=== PATIENT | female | born 2000 | race Hispanic/Latino ===

== ENCOUNTER → 2020-04-07 15:08 | Outpatient (CLI) | payer OTHER, MEDICAID, SELFPAY ==
[2020-04-07 16:55] LABS: Add Manual Diff / Slide Review NO; Basophils Absolute Auto 0 /uL (0-100); Basophils Percent Auto 0.3 % (0-2); Eosinophils Absolute Auto 100 /uL (0-450); Eosinophils Percent Auto 0.6 % (2-4); Hematocrit 38.7 % (36-46); Hemoglobin 13.1 g/dL (12.0-16.0); Lymphocytes Absolute Auto 2700 /uL (1100-4500); Lymphocytes Percent Auto 30.5 % (25-40); Mean Corpuscular Hemoglobin 29.9 PG (26-34); Mean Corpuscular Volume 87.9 fL (80-100); Monocytes Absolute Auto 300 /uL (0-900); Monocytes Percent Auto 3.8 % (3-14); Neutrophils Absolute Auto 5800 /uL (1500-7000); Neutrophils Percent Auto 64.8 % (50-75); Platelet Count 276 X10^3/uL (150-400); Red Cell Distribution Width 12.9 % (11.6-14.8)
[2020-04-07 17:14] LABS: Appearance Urine UA CLEAR; Bilirubin Urine UA NEGATIVE (NEGATIVE); Color Urine UA YELLOW; Glucose Urine UA NEGATIVE (Negative); Ketones Urine UA NEGATIVE (NEGATIVE); Leukocyte Esterase Urine UA NEGATIVE (NEGATIVE); Nitrite Urine UA POSITIVE (Negative); Occult Blood Urine UA NEGATIVE (Negative); Protein Urine UA NEGATIVE (Negative); Specific Gravity Urine UA <=1.005 (1.000-1.035); Urobilinogen Urine UA 0.2 E.U./dL (0.2)
[2020-04-07 17:21] LABS: RBC Urine None Seen (0-5/HPF); WBC Urine None Seen (0-5/HPF)
[2020-04-07 17:23] LABS: Amorphous Sediment Urine 1+; Bacteria Urine Few (2-10)
[2020-04-08 05:10] LABS: RPR Screen Non Reactive (Non Reactive)
[2020-04-08 07:09] LABS: Varicella IgG Antibody <135 index (Immune >165)
[2020-04-08 16:13] LABS: Hepatitis B Surface Antigen NEGATIVE s/c (NEGATIVE); Rubella Antibody IgG 12.2 IU/mL (>15)
[2020-04-08 16:30] LABS: HIV 1 & 2 Ab/Ag 4th Gen Combo NEGATIVE (NEGATIVE); Hep C Virus Ab w/Reflex Quant NEGATIVE s/c (NEGATIVE)
== END ==
PROVIDERS: Referring Provider Specialist; Visit Provider Specialist
DX: Z34.01 Encounter for supervision of normal first pregnancy, first trimester (principal)
CPT/HCPCS: 36415; 80055; 81003; 81015; 86787; 86803; 86850; 86900; 86901; 87086; 87389

== ENCOUNTER → 2020-07-28 11:52 | Outpatient (CLI) | payer OTHER, MEDICAID, SELFPAY | PROVIDERS: Referring Provider Specialist; Visit Provider Specialist | DX: Z34.02 Encounter for supervision of normal first pregnancy, second trimester (principal); Z3A.22 22 weeks gestation of pregnancy | CPT/HCPCS: 87086 ==

== ENCOUNTER → 2020-07-28 13:07 | Outpatient (CLI) | payer OTHER, MEDICAID, SELFPAY ==
--- NOTE | 2020-07-28 | DI.US.S_ITS ---
PROCEDURE: US OB >= 14 WEEKS FETUS INDICATIONS: ANATOMY SCAN OUTSIDE/PRIOR DATING DATA: First dating scan (date and location): 07/28/2020 . Estimated date of delivery (STALIN) from first dating scan: 11/29/2020 . TECHNIQUE: Real-time scanning was performed of the fetus, with image documentation and biometric measurements. Endovaginal scanning: No COMPARISON: None. FINDINGS: General: A single living intrauterine gestation is present. Presentation: Variable. Placenta: Placental position is anterior , without previa. Amniotic fluid index: 15.4 cm, normal range is 5-24 cm. heart rate: 155 beats per minute. Maternal cervical canal: 5.0 cm long. Normal lower limit is 2.5 cm. biometrics: Biparietal diameter: 22 weeks Head circumference: 22 weeks 1 day Abdominal circumference: 22 weeks 3 days Femur length: 22 weeks 3 days Estimated gestational age from initial scan: not applicable. Composite gestational age from present scan: 22 weeks 2 days Estimated weight and percentile: 499 g Measurement variability for biometric dating: +/- 7 days from 14 weeks to 15 weeks 6 days gestation, +/- 10 days from 16 weeks to 21 weeks 6 days gestation, +/- 2 weeks from 22 weeks to 27 weeks 6 days gestation, +/- 3 weeks for 28 weeks gestation or later. weight reference: 4500 g or EFW >90/95% is considered macrosomia or large for gestational age. EFW <10% is small for gestational age. EFW 5% or less is considered intra-uterine growth restriction. Anatomic survey: Neuro: Ventricles are non-dilated at less than 10 mm. Cisterna magna is normal at 3-11 mm. Cerebellum is normal in size and morphology. Nuchal skin fold: Normal at less than 6 mm between 14-21 weeks gestational age. Face: Nose and lips, facial profile are normal. Spine: No evidence for spina bifida. Heart: 4-chambered heart is present, with normal ventricular outflow tracts. Diaphragm: Diaphragm is intact. Stomach: Left-sided stomach is present. Kidneys: No hydronephrosis. Normal is less than 5 mm in 2nd trimester, less than 7 mm in 3rd trimester. Cord: 3-vessel cord has orthotopic insertion. Bladder: Normal in size. Extremities: All 4 extremities identified. IMPRESSION: 1. Single living IUP present with composite gestational age of 22 weeks 2 days corresponding to ultrasound STALIN of 11/29/2020. 2. Normal anatomic survey. Dictated by: Fredrick JACOBSEN Interpreted: Jana Benson MD on 07/28/2020 at 16:58 Approved by: Jana Benson M.D. on 07/28/2020 at 17:58
== END ==
PROVIDERS: PCP Nurse Practitioner Family; Referring Provider Specialist; Visit Provider Specialist
DX: Z34.02 Encounter for supervision of normal first pregnancy, second trimester (principal); Z3A.22 22 weeks gestation of pregnancy
CPT/HCPCS: 76811; 87077; 87086

== ENCOUNTER → 2020-11-02 21:38 | Outpatient (CLI) | payer OTHER, MEDICAID, SELFPAY ==
[2020-11-04 09:43] LABS: Strep Grp B PCR NEG for Grp B Strep
== END ==
PROVIDERS: PCP Nurse Practitioner Family; Visit Provider Specialist
DX: Z34.03 Encounter for supervision of normal first pregnancy, third trimester (principal); Z3A.36 36 weeks gestation of pregnancy
CPT/HCPCS: 87653

== ENCOUNTER 2020-11-25 04:39 | Observation (INO) | payer OTHER, MEDICAID, SELFPAY ==
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
== END 2020-11-25 08:10 | disposition home or self-care (01) ==
PROVIDERS: Admitting Provider Specialist; PCP Nurse Practitioner Family; Referring Provider Specialist; Visit Provider Specialist
DX: O47.9 False labor, unspecified (principal); O48.0 Post-term pregnancy; Z3A.40 40 weeks gestation of pregnancy
CPT/HCPCS: 59025; G0378; G0379

== ENCOUNTER 2020-11-26 09:28 | Inpatient (IN) | payer OTHER, MEDICAID, SELFPAY ==
[2020-11-26] VITALS (7 sets, daily range): BP systolic 96–123; BP diastolic 42–60; PULSE 86–95; RESP 16–23; TEMP 37–37.2; O2SAT 99–100
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
[2020-11-26 11:18] LABS: Add Manual Diff / Slide Review NO; Basophils Absolute Auto 100 /uL (0-100); Basophils Percent Auto 0.6 % (0-2); Eosinophils Absolute Auto 0 /uL (0-450); Eosinophils Percent Auto 0.4 % (2-4); Hematocrit 36.3 % (36-46); Hemoglobin 12.4 g/dL (12.0-16.0); Lymphocytes Absolute Auto 1600 /uL (1100-4500); Lymphocytes Percent Auto 15.6 % (25-40); Mean Corpuscular HGB Conc 34.2 % (30-36); Mean Corpuscular Hemoglobin 29.8 PG (26-34); Mean Corpuscular Volume 87.3 fL (80-100); Monocytes Absolute Auto 400 /uL (0-900); Monocytes Percent Auto 4.2 % (3-14); Neutrophils Absolute Auto 8200 /uL (1500-7000); Neutrophils Percent Auto 79.2 % (50-75); Platelet Count 327 X10^3/uL (150-400); Red Blood Cell Count 4.15 X10^6/uL (4.0-5.2); Red Cell Distribution Width 13.7 % (11.6-14.8); White Blood Cell Count 10.3 X10^3/uL (4.5-11.0)
[2020-11-26 11:39] LABS: COVID19 -Nasal RAPID Negative (Negative)
--- NOTE | 2020-11-26 13:38 | PM.OBPNLAB ---
Date/Time Date Patient Seen: 11/26/20 Time Patient Seen: 13:15 Pain Control Pain control: tolerating well Comments: Contractions are stronger but she is coping well. Pelvic Exam Dilation (cm): 5 Effacement (%): 100 station: -2 Amniotic membrane status: Ruptured (AROM small amount of clear fluid) Contractions Contraction frequency (min): 5 Contraction pattern: Regular Contraction intensity: Strong/Firm Status status: Category l Heart Rate Baseline: 135 Monitor Accelerations: Present Monitor Decelerations: Absent Monitor Variability: Moderate Assessment and Plan Assessment: active labor Plan: continuous present management Comments: Doing well after AROM with clear fluid. Continue expectant management.
[2020-11-26] MEDS: LACTATED RINGERS 1,000 ML 100 ML IV ×4 (15:02→21:29)
[2020-11-26] MEDS: OXYTOCIN PREMIX 30 UNIT/500 ML PLAST..BAG IV (15:02)
--- NOTE | 2020-11-26 16:01 | PM.OBPNLAB ---
Date/Time Date Patient Seen: 11/26/20 Time Patient Seen: 15:50 Pain Control Pain control: tolerating well Pelvic Exam Dilation (cm): 6 Effacement (%): 100 station: -2 Amniotic membrane status: Ruptured (AROM small amount of clear fluid) Contractions Pitocin rate (mU/min): 6 Contraction frequency (min): 5 Contraction pattern: Regular Contraction intensity: Strong/Firm Status status: Category l Heart Rate Baseline: 130 Monitor Accelerations: Present Monitor Decelerations: Absent Monitor Variability: Moderate Assessment and Plan Assessment: active labor Plan: begin patient augmentation Comments: Patient has changed from 5 cm to 6 cm over the last 2.5 hours however contractions are quite spaced out every 5-6 minutes or more. head has not descended past -2 station. Encouraged patient to walk, use the birthing ball and peanut ball and try hands and knees. Will reassess after she has been in a regular contraction pattern for 2 hours. heart tones have been category 1 and 2 due to periods of minimal variability which returned to moderate.
--- NOTE | 2020-11-26 19:10 | PM.OBPNLAB ---
Date/Time Date Patient Seen: 11/26/20 Time Patient Seen: 18:20 Pain Control Comments: Patient is much more uncomfortable and request relief. Interested in nitrous oxide. Pelvic Exam Dilation (cm): 6 Effacement (%): 100 station: -2 Amniotic membrane status: Ruptured (AROM small amount of clear fluid) Contractions Pitocin rate (mU/min): 5 Contraction frequency (min): 5 Contraction pattern: Regular Contraction intensity: Strong/Firm Status status: Category ll Heart Rate Baseline: 140 Monitor Accelerations: Present Monitor Decelerations: Variable Assessment and Plan Plan: Comments: Patient has been at 6 cm for several hours now despite pitocin and regular contractions without descent of the head. Suspect either occiput posterior or asynclitic. Patient is very painful and tired. Discussed for arrest of labor and failure to descend. Discussed risk of bleeding, infection, injury to surrounding organs (bowel, bladder, ureters). She would accept a blood transfusion if necessary. Both she and her partner were given the opportunity to ask questions and expressed their understanding. Will proceed with primary . Ancef 2 g prior to surgery.
--- NOTE | 2020-11-26 19:20 | PM.PREOP ---
Pre-operative Note COVID-19 COVID-19 status: Negative Result date/Date tested (Pos, Neg/Pending): 11/26/20 Interval Note History & Physical reviewed/Exam performed by Physician: Yes Changes to H&P: No
[2020-11-26] MEDS: CEFAZOLIN 2 GM/100 ML FROZ.PIGGY IV (20:10)
--- NOTE | 2020-11-26 21:17 | SUR.OPER ---
Supine on Padded OR bed, head on pillow, safety belt at thigh, arms secured on padded arm boards at <90 degrees abduction. Bump under right buttock. Legs uncrossed with pillow under knees, gel pad to heels, tape over blanket to lower legs.
--- NOTE | 2020-11-26 21:17 | SUR.OPER ---
Viable baby girl delivered at 2108. placenta delivered. Cord blood tubes X2 and placenta given to L&D RN.
--- NOTE | 2020-11-26 21:48 | P.OP_ITS ---
Operative Date/Time/Diagnoses Date of procedure: 11/26/20 Time of procedure: 21:48 Pre-op diagnosis: Stage I arrest of labor Occiput posterior presentation Post-op diagnosis: same Procedure & Clinicians Procedure: Primary low-transverse section Spinal anesthesia Same procedure as scheduled: Yes Indications: Occiput posterior presentation Stage I arrest of labor Surgeon: Tish Espinoza Yes if Unassisted: No Life Insurance Actuary: Tali Ceron Reason for Life Insurance Actuary: Retraction and assist with delivery of the baby Anesthesia Type: Spinal (With Duramorph) Operative Notes Findings: Live female infant in the direct occiput posterior presentation Normal tubes and ovaries Normal uterus Closure Type: primary Specimen(s): cord blood and placenta Applied: Catheter (To continuous drainage) Estimated Blood Loss (mL): 500 Blood products transfused: none Procedure in detail: After informed consent was obtained, the patient was taken to the operating room where she was placed in the seated position. Spinal anesthesia with Duramorph was administered. She was placed in the dorsal supine position with a leftward tilt, and prepped and draped in the usual sterile fashion. A Pfannenstiel skin incision was made 2 finger breaths above the pubic symphysis. The assistant professor of archaeology provided hemostasis with the Bovie and retraction. This incision was carried down to the fascia. The fascia was nicked in the midline and the incision extended bilaterally with the Prater scissors with retraction by the assistant professor of archaeology. The superior aspect of the fascia was grasped with the Burton clamps, elevated, and the underlying rectus muscles dissected off sharply and bluntly by the assistant professor of archaeology. This was repeated on the inferior aspect of this incision. The rectus muscles were in the midline. The peritoneum was grasped between 2 hemostats and entered sharply with the Metzenbaum scissors. Retraction was provided by the assistant professor of archaeology. Upon entering the peritoneal cavity there was small amount of clear fluid. The bladder blade was inserted. With retraction by the assistant professor of archaeology the bladder flap was created by entering sharply with the Metzenbaum scissors and the incision extended bilaterally with the Metzenbaum scissors and the bladder flap created digitally. The bladder blade was reinserted. The lower uterine segment was incised in a transverse fashion with the scalpel. Retraction was provided by the assistant professor of archaeology. Upon entering the amniotic sac there was a small amount of clear amniotic fluid. The baby was found to be in the direct occiput posterior presentation. The infant's head was delivered without difficulty with fundal pressure from the assistant professor of archaeology. The nose and mouth were suction with bulb suction. The remainder of the body delivered without difficulty. The cord was double clamped and cut. The was handed off to waiting RN and RT. Cord bloods were obtained by the assistant professor of archaeology. The placenta was removed manually after Pitocin was given in the IV fluids. The uterus was cleared of all clots and debris. The uterine incision was closed with # Chromic in a running interlocking fashion. A 2nd layer the same suture was used for an imbricating layer. Hemostasis was achieved. The tubes and ovaries were examined and were found to be normal. The gutters were cleared of all clots and debris. The bladder flap was reapproximated using 2 0 Vicryl in a running fashion with retraction by the assistant professor of archaeology. The parietal peritoneum was closed using 2 0 Vicryl in a running fashion. Retraction was provided by the assistant professor of archaeology. The fascia was reapproximated with 0 Vicryl in a running fashion. The assistant professor of archaeology did the contralateral side of the fascia. The subcutaneous layer was copiously irrigated with warm normal saline. Hemostasis was achieved. Four simple interrupted sutures with 3 0 Vicryl were placed to reapproximate the subcutaneous layer. The skin was closed with 4 0 Monocryl in a subcuticular fashion. Steri-Strips and an Aquacel dressing were placed. The uterus was expressed of a small amount of old blood. Sponge, lap, and instrument counts were correct x2. The patient tolerated the procedure well, and was taken to PACU in stable condition. Complications: none [place] Baby 1: Gender: Female Presentation: vertex Position: Occiput Posterior Placental Delivery Description: Manual Removal and Normal Configuration Cord Vessel Description: 3 Vessels score (1 min): 9 score (5 min): 9 weight: 6 lb 12 oz Post-operative Condition: stable Disposition: PACU Aftercare: routine postop
[2020-11-26] MEDS: miSOPROStoL 200 MCG TABLET 800 MCG PR (22:25)
--- NOTE | 2020-11-26 22:31 | SUR.PHASEI ---
Second check of fundus revealed large amount of bleeding and small clots, called spoke with ALL Oliveira informed of increased bleeding, Roxanne came to see pt in PACU fundus checked by her and large amounts of clots out, fundus remained firm at 1 below umbilicus. Roxanne and Abner transported pt to and left in stable condition.
--- NOTE | 2020-11-26 22:37 | SUR.PHASEI ---
addendum, Roxanne medicated pt with cytotec while in PACU.
[2020-11-27] MEDS: LACTATED RINGERS 1,000 ML 100 ML IV (00:20)
[2020-11-27] MEDS: ONDANSETRON 4 MG/2 ML INJ IV (01:10)
[2020-11-27] MEDS: KETOROLAC 30 MG/ML VIAL IV ×3 (03:34→15:01)
[2020-11-27 06:31] LABS: Hematocrit 29.6 % (36-46); Hemoglobin 10.1 g/dL (12.0-16.0)
[2020-11-27] MEDS: DOCUSATE 250 MG CAPSULE PO (09:05)
[2020-11-27] MEDS: PRENATAL VIT,CALC/IRON/FOLIC 1 TABLET 1 TAB PO (09:06)
--- NOTE | 2020-11-27 09:19 | P.PNOB_ITS ---
Subjective - OB Subjective Patient comments: no complaints [place] baby status: doing well [place] feeding status: exclusively breast feeding Date Patient Seen: 11/27/20 Time Patient Seen: 09:19 Interval history: Patient is postoperative day 1. Primary section for for stage arrest. She has no complaints. Exam Vital Signs (past 8 hours): Blood pressure 87/52, pulse 64, temperature 97.9? Oxygen Delivery Method Room Air Narrative Exam Narrative: Abdomen is soft, nontender. Uterus is firm, at U, nontender. Dressing is clean, dry, intact. Mild lochia. Extremities without edema and nontender. Objective Labs Result Diagrams: 11/27/20 06:15 Labs: Laboratory Results - last 24 hr 11/26/20 11/26/20 11/26/20 11:00 11:00 11:00 WBC 10.3 RBC 4.15 Hgb 12.4 Hct 36.3 MCV 87.3 MCH 29.8 MCHC 34.2 RDW 13.7 Plt Count 327 Neut % (Auto) 79.2 H Lymph % (Auto) 15.[address] [place] % (Auto) 4.2 Eos % (Auto) 0.4 L Baso % (Auto) 0.6 Neut # (Auto) 8200 H Lymph # (Auto) 1600 [facility] # (Auto) 400 Eos # (Auto) 0 Baso # (Auto) 100 SARS-CoV-2 (PCR) Negative Blood Type O Positive Antibody Screen Negative 11/27/20 06:15 WBC RBC Hgb 10.1 L Hct 29.6 L MCV MCH MCHC RDW Plt Count Neut % (Auto) Lymph % (Auto) [facility] % (Auto) Eos % (Auto) Baso % (Auto) Neut # (Auto) Lymph # (Auto) [facility] [place] # (Auto) Eos # (Auto) Baso # (Auto) SARS-CoV-2 (PCR) Blood Type Antibody Screen Assessment & Plan Assessment and Plan (1) Delivery by section: Status: Acute Plan day: 1 plan OB: routine postop care Time Spent With Patient Time: Total time spent is greater than 50% in coordination of care (as documented) at patient's floor/unit and/or counseling patient: Time with patient: less than 15 minutes
--- NOTE | 2020-11-27 12:32 | P.PNOB_ITS ---
Subjective - OB Subjective Patient comments: no complaints, pain well controlled, tolerating diet and flatus present baby status: doing well and nursing well [place] feeding status: exclusively breast feeding Date Patient Seen: 11/27/20 Time Patient Seen: 12:32 Exam Vital Signs (past 8 hours): Oxygen Delivery Method Room Air Narrative Exam Narrative: Generally: Patient is sitting up in bed, eating lunch, no acute distress Lungs: Clear to auscultation bilaterally Cardiovascular: Regular rate and rhythm Fundus: Firm at U -1 Incision: Clean dry and intact with Aquacel dressing Extremities: Trace edema, negative Homans Objective Labs Result Diagrams: 11/27/20 06:15 Labs: Laboratory Results - last 24 hr 11/27/20 06:15 Hgb 10.1 L Hct 29.6 L Assessment & Plan Assessment and Plan (1) Delivery by section: Status: Acute Plan day: 1 plan OB: routine postop care Time Spent With Patient Time: Total time spent is greater than 50% in coordination of care (as documented) at patient's floor/unit and/or counseling patient: Time with patient: less than 15 minutes
[2020-11-27] MEDS: ACETAMINOPHEN 325 MG TABLET 650 MG PO ×2 (15:01→21:05)
[2020-11-27] MEDS: IBUPROFEN 600 MG TABLET PO (21:06)
[2020-11-28] MEDS: ACETAMINOPHEN 325 MG TABLET 650 MG PO ×2 (02:56→08:50)
[2020-11-28] MEDS: IBUPROFEN 600 MG TABLET PO ×2 (02:57→08:51)
[2020-11-28] MEDS: DOCUSATE 250 MG CAPSULE PO (08:50)
[2020-11-28] MEDS: PRENATAL VIT,CALC/IRON/FOLIC 1 TABLET 1 TAB PO (08:51)
--- NOTE | 2020-11-28 09:21 | P.DS_ITS ---
Discharge Providers Provider Date of admission: 11/26/20 09:28 Discharge Date: 11/28/20 Primary care physician: EMMA Bridges Consults: 11/26/20 10:30 Consult to Anesthesiology Urgent Comment: Consulting Provider: Anesthesiologist Reason for consultation: epidural Has provider been notified: No 11/26/20 23:46 Consult to [employer] Press Tender Routine Comment: Discharge provider: Karin Granados MD Summary Hospital Course Date Patient Seen: 11/28/20 Time Patient Seen: 09:22 Diagnoses: 40 week gestation with for stage arrest requiring primary low-transverse section Hospital Course: Patient arrived in Labor and delivery in active labor. She did not progress past 6 cm despite Pitocin. She underwent a primary low-transverse section on 11/26/2020. Patient is ambulatory. Tolerating regular diet. Urinating well and passing gas. No headaches, scotomata, epigastric pain. Peripartum Data Delivery Method: Section (1st stage arrest) complications: none [place] 1: Gender: Female Disposition of : home Discharge Diagnosis (1) Delivery by section: Status: Acute Status at Discharge Cognitive/behavioral status at discharge: oriented Functional status at discharge: independent ambulation Overall status at discharge: patient is progressing back to baseline Time Spent with Patient Time attestation: Total time spent providing and/or coordinating discharge services: Objective Labs Result Diagrams: 11/27/20 06:15 Exam Vital Signs (past 8 hours): Blood pressure 117/65, pulse 79, temperature 97.3? Oxygen Delivery Method Room Air Narrative Exam Narrative: Abdomen is soft, nontender. Uterus is firm, at U, nontender. Dressing is clean, dry, intact. Mild lochia. Extremities without edema and nontender. Patient's blood type is O-positive. She will receive rubella vaccine prior to discharge, she received Tdap in the 3rd trimester. Discharge Plan Discharge Plan Patient Disposition: Home Provider Discharge Comment: Call with fever, chills, redness or drainage around the incision, or bleeding vaginally more than a pad in an hour Tylenol 650 mg p.o. q.6 hours Ibuprofen 600 mg p.o. q.6 hours Discharge orders & Medications Prescriptions: New oxycodone 5 mg tablet 5 mg PO Q4H PRN (Reason: pain) Qty: 14 RF: 0 Continued prenat.vits,lynsey,[id number] Tablet 1 tab PO DAILY RF: 0 Follow up/Referrals: Karin Granados MD [Physician] - 11/30/20 (Foist in for Aquacel removal on Sat11/30/20 F/U 4-6 wks for PP visit in the next time Foist is there) Diet/Activity/Treatments Diet: Regular Activity: No heavy lifting Skin/Wound/Dressing Care Report to your healthcare provider any signs of infection, such as:: chills, fever, increased pain, unusual drainage and unusual redness Dressing: Do not remove Visit Report/Discharge Packet Instructions: DI for , DI for Prescription Opioid Use Discharge Data Primary Care Provider: Angela Gilmore
[2020-11-28 10:08] VITALS: BP 117/65; PULSE 79; RESP 16; TEMP 36.3
[2020-11-28] MEDS: MEASLES,MUMPS,RUBELLA VACC/PF 0.5 ML VIAL SUBCUT (10:53)
== END 2020-11-28 13:45 | disposition home or self-care (01) | DRG 540 ==
PROVIDERS: Obstetrics & Gynecology; Admitting Provider Family Medicine; PCP Nurse Practitioner Family; Referring Provider Family Medicine; Visit Provider Specialist
PROC: 10907ZC Drainage of Amniotic Fluid, Therapeutic from Products of Conception, Via Natural or Artificial Opening (ICD-10-PCS; CPT 59514; principal; 2020-11-26 22:30)
DX: O48.0 Post-term pregnancy (principal); O62.1 Secondary uterine inertia; O47.9 False labor, unspecified; Z3A.40 40 weeks gestation of pregnancy; Z37.0 Single live birth; Z20.822 Contact with and (suspected) exposure to COVID-19
CPT/HCPCS: 36415; 59025; 59050; 59514; 85014; 85018; 85025; 86850; 86900; 86901; 87635; C9803; G0378; G0379; J0690; J1885; J2274; J2405; J2590; S0191

== ENCOUNTER → 2022-01-04 15:01 | Outpatient (CLI) | payer OTHER, MEDICAID, SELFPAY ==
[2022-01-04 15:30] LABS: COVID19 -Nasal RAPID Negative (Negative)
== END ==
PROVIDERS: PCP Nurse Practitioner Family; Visit Provider Specialist
DX: Z20.822 Contact with and (suspected) exposure to COVID-19; Z01.812 Encounter for preprocedural laboratory examination
CPT/HCPCS: 87635; C9803

== ENCOUNTER 2022-01-05 09:48 | Day surgery (SDC) | payer OTHER, MEDICAID, SELFPAY ==
[2022-01-05] VITALS (9 sets, daily range): BP systolic 105–127; BP diastolic 60–77; PULSE 84–123; RESP 15–36; TEMP 35.6–36.8; O2SAT 97–100; BMI 34.5
--- NOTE | 2022-01-05 | PATH_ITS ---
[facility] Accession Number: [id number] . 01 Material submitted: . LABIA - LEFT LABIAL MASS . 01 Diagnosis: Soft Tissue, Left Labial, Excision: Inflamed epithelial (ciliated columnar) lined cyst, consistent with Mullerian cyst. Negative for neoplasia. [facility] 01/11/2022 1519 Local . 01 Electronically signed: . Guerda Miranda MD, Pathologist NPI- [id number] . 01 Gross description: . The specimen is received in formalin, labeled left labial mass, and consists of an aggregate of adams, soft tissue fragments measuring 3.0 x 3.0 x 1.4 cm in aggregate. The mucosal surfaces appear yellow-brown and granular to pale adams and smooth. A distinct lesion cannot be grossly appreciated. The specimen is differentially inked and entirely submitted as follows: A1: Smaller tissue fragments. A2: One tissue fragment, inked black and trisected. A3-A5: Largest tissue fragment, inked blue and serially sectioned. ([id number]) /FRR 01/06/2022 1745 Local . 01 Pathologist provided ICD-10: N76.4, N90.7 . 01 CPT . 704526 Specimen Comment: A courtesy copy of this report has been sent to [phone] Performed at: 01 [facility] [address] [place] [address], [place], [place] [id number] MD Yuri Zee MD Phone: [phone]
[2022-01-05] MEDS: LACTATED RINGERS 1,000 ML 100 ML IV (10:24)
--- NOTE | 2022-01-05 10:37 | SUR.OPER ---
Lithotomy on padded OR bed, head on pillow, arms secured on padded arm boards at <90 degrees abduction. Legs secured in padded yellow fins stirrups.
--- NOTE | 2022-01-05 10:48 | PM.PREOP ---
Pre-operative Note COVID-19 COVID-19 status: Negative Result date/Date tested (Pos, Neg/Pending): 01/04/22 Criteria for continued procedure: Expected advancement of disease process Interval Note History & Physical reviewed/Exam performed by Physician: Yes Changes to H&P: No
[2022-01-05] MEDS: CLINDAMYCIN 900 MG/50 ML PIGGYBACK 50 MG IV (11:00)
[2022-01-05] MEDS: BUPIVACAINE 0.5% (PF) 30 ML, EPINEPHrine 0.15 MG INJ (11:49)
--- NOTE | 2022-01-05 12:10 | PM.OP.1 ---
Operative Date/Time/Diagnoses Date of procedure: 01/05/22 Time of procedure: 12:11 Pre-op diagnosis: Vulvar abscess Post-op diagnosis: other (Bartholin's gland duct cyst and vulvar mass) Procedure & Clinicians Procedure: Marsupialization of left Bartholin's gland duct and resection of left vulvar mass Same procedure as scheduled: No (Bartholin's gland cyst found separate from the left vulvar mass) Indications: Recurring left vulvar abscess Surgeon: Karin Granados Click Yes if Unassisted: Yes Anesthesia Type: General Operative Notes Findings: Bartholin's gland cyst left side. Left vulvar mass probable scar tissue from prior multiple abscesses in the same area. Closure Type: primary Specimen(s): other (Vulvar mass) Estimated Blood Loss (mL): 25 Blood products transfused: none Procedure in detail: Patient was brought to the operating room where she underwent general anesthesia. She was placed in low Yellofin stirrups and prepped and draped in usual sterile fashion. Antibiotics were in prior to beginning the case. A check system was reviewed with the staff in the room prior to beginning the case. The area of the left Bartholin's gland cyst was injected with 0.5% Marcaine with epinephrine. An incision was made in the skin. Slightly cloudy discharge was released. The gland cyst wall was sutured to the skin marsupializing the gland. A small amount of packing was placed in the gland with a small tail coming out through the incision. Next in incision was made in the left inter labial fold after injecting the skin with 0.5% Marcaine with epinephrine. The incision was carried down to the mass which was incised with scalpel and scissors. The defect was repaired with interrupted 3 0 Vicryl sutures deep and the skin was reapproximated with 4-0 Vicryl suture. The defect in the skin of the labia majora that was incidentally entered with dissection the mass was repaired with 4-0 Vicryl suture. Patient went to recovery room in good condition. Counts of instruments and sponges were correct. Complications: none Post-operative Condition: stable Disposition: same day surgery Plan for aftercare: Home when awake and stable.
--- NOTE | 2022-01-05 13:00 | SUR.PHASEI ---
note: unable to edit aldrette from 1157 to 1122, pt was sleeping until 1222, and required simple face mask at 10 litrers until 1222 when oral airway was removed and patient was awake at that time.
[2022-01-05] MEDS: ONDANSETRON 4 MG/2 ML INJ IV (13:13)
--- NOTE | 2022-01-05 13:47 | SUR.PHASEII ---
Patient with two episodes of emesis even after administration of zofran. Patient states she feels better. Cool cloth provided, comfort measures given. VSS.
== END 2022-01-05 13:49 | disposition home or self-care (01) ==
PROVIDERS: PCP Specialist; Referring Provider Specialist; Visit Provider Specialist
PROC: (CPT 56440; principal; 2022-01-05 11:15)
DX: N75.0 Cyst of Bartholin's gland (principal); N90.7 Vulvar cyst
CPT/HCPCS: 56440; 81025; J0171; J1100; J1885; J2250; J2310; J2405; J2704; J3010

== ENCOUNTER → 2023-03-11 11:36 | Outpatient (CLI) | payer OTHER, MEDICAID, SELFPAY ==
[2023-03-11 15:12] LABS: Urine N gonorrhoeae NOT DETECTED
[2023-03-11 15:23] LABS: Urine Chlamydia NOT DETECTED
== END ==
PROVIDERS: PCP Specialist; Visit Provider Specialist
DX: Z34.81 Encounter for supervision of other normal pregnancy, first trimester (principal); Z3A.10 10 weeks gestation of pregnancy
CPT/HCPCS: 87491; 87591

== ENCOUNTER → 2023-03-11 11:44 | Outpatient (CLI) | payer OTHER, MEDICAID, SELFPAY ==
[2023-03-11 15:20] LABS: Add Manual Diff / Slide Review NO; Basophils Absolute Auto 0 /uL (0-100); Basophils Percent Auto 0.3 % (0-2); Eosinophils Absolute Auto 400 /uL (0-450); Eosinophils Percent Auto 3.5 % (2-4); Hematocrit 35.2 % (36-46); Lymphocytes Absolute Auto 2800 /uL (1100-4500); Lymphocytes Percent Auto 26.3 % (25-40); Mean Corpuscular HGB Conc 34.1 % (30-36); Mean Corpuscular Volume 85.3 fL (80-100); Monocytes Absolute Auto 400 /uL (0-900); Monocytes Percent Auto 3.4 % (3-14); Neutrophils Absolute Auto 7100 /uL (1500-7000); Neutrophils Percent Auto 66.5 % (50-75); Platelet Count 304 X10^3/uL (150-400); Red Blood Cell Count 4.13 X10^6/uL (4.0-5.2); Red Cell Distribution Width 13.2 % (11.6-14.8); White Blood Cell Count 10.7 X10^3/uL (4.5-11.0)
[2023-03-11 16:14] LABS: Hepatitis B Surface Antigen NEGATIVE s/c (NEGATIVE); Rubella Antibody IgG 22.6 IU/mL (>15)
[2023-03-11 16:29] LABS: HIV 1 & 2 Ab/Ag 4th Gen Combo NEGATIVE (NEGATIVE); Hep C Virus Ab w/Reflex Quant NEGATIVE s/c (NEGATIVE)
[2023-03-12 06:23] LABS: RPR Screen Non Reactive (Non Reactive)
[2023-03-12 10:08] LABS: Varicella IgG Antibody <135 index (Immune >165)
== END ==
PROVIDERS: PCP Specialist; Referring Provider Specialist; Visit Provider Specialist
DX: Z34.81 Encounter for supervision of other normal pregnancy, first trimester (principal); Z3A.10 10 weeks gestation of pregnancy
CPT/HCPCS: 36415; 80055; 86787; 86803; 86850; 86900; 86901; 87086; 87389; 87491; 87591

== ENCOUNTER → 2023-05-01 09:04 | Outpatient (CLI) | payer OTHER, MEDICAID, SELFPAY ==
[2023-05-03 20:17] LABS: Inhibin A, Dimeric 87.94 pg/mL (.); Inhibin A, MoM 0.63 (.); Maternal Ethnicity Other (.); Maternal Weight 173 lbs (.); Number of Fetuses No (.); OSBR Risk 1 IN 10000 (.); Results Report (.); Test Results *Screen Negative* (.); hCG, MoM 0.91 (.); hCG, Serum 26673 mIU/mL (.)
== END ==
PROVIDERS: PCP Specialist; Referring Provider Specialist; Visit Provider Specialist
DX: Z34.82 Encounter for supervision of other normal pregnancy, second trimester (principal); Z3A.17 17 weeks gestation of pregnancy
CPT/HCPCS: 36415; 82105; 82677; 84702; 86336

== ENCOUNTER → 2023-05-27 10:10 | Outpatient (CLI) | payer OTHER, MEDICAID, SELFPAY ==
--- NOTE | 2023-05-27 10:11 | DI.US.S_ITS ---
PROCEDURE: US OB >= 14 WEEKS FETUS INDICATIONS: ANATOMY OUTSIDE/PRIOR DATING DATA: Last menstrual period (LMP): 12/30/2022. LMP-based estimated date of delivery (STALIN): 10/06/2023. First dating scan (date and location): 03/11/2023. Estimated date of delivery (STALIN) from first dating scan: 10/08/2023. TECHNIQUE: Real-time scanning was performed of the fetus, with image documentation and biometric measurements. Endovaginal scanning: Not performed COMPARISON: [facility], , OB <= 14 WEEKS FETUS, 03/11/2023, 11:38. [facility], , OB >= 14 WEEKS FETUS, 05/01/2023, 8:59. FINDINGS: General: A single living intrauterine gestation is present. Presentation: Vertex. Placenta: Placental position is anterior , without previa. Amniotic fluid index: 14.3 cm, normal range is 5-24 cm. Single deepest vertical pocket is 5.3 cm. heart rate: 150 beats per minute. Maternal cervical canal: 4.0 cm long. Normal lower limit is 2.5 cm. biometrics: Biparietal diameter: 4.7 cm 20 weeks 1 day Head circumference: 17.9 cm 20 weeks 3 days Abdominal circumference: 15.9 cm 21 weeks 0 days Femur length: 3.5 cm 21 weeks 1 day estimated gestational age: 21 weeks 1 day Composite gestational age from present scan: 20 weeks 5 days Estimated weight and percentile: 389 g, 35th percentile Anatomic survey: Neuro: Ventricles are non-dilated at less than 10 mm. Cisterna magna is normal at 3-11 mm. Cerebellum is normal in size and morphology. Nuchal skin fold: Normal at less than 6 mm between 14-21 weeks gestational age. Face: Nose and lips, facial profile are normal. Spine: No evidence for spina bifida. Heart: 4-chambered heart is present, with normal ventricular outflow tracts. Diaphragm: Diaphragm is intact. Stomach: Left-sided stomach is present. Kidneys: No hydronephrosis. Normal is less than 5 mm in 2nd trimester, less than 7 mm in 3rd trimester. Cord: 3-vessel cord has orthotopic insertion. Bladder: Normal in size. Extremities: All 4 extremities identified. IMPRESSION: 1. Single living intrauterine . 2. Normal 2nd trimester anatomy survey. No anatomic anomalies detected at this time. We strive to produce accurate, complete, and clear reports of imaging services. To assist us in improving patient care, this report was composed using standard report templates and voice recognition software. Therefore, it may contain abnormal punctuation, insertions and/or omissions. Occasional wrong-word or sound-alike substitutions may occur. Though we review the report and make efforts to correct it, we do recommend that the report be read carefully in proper context to recognize any text inaccuracies. Dictated by: Rio Tamayo M.D. on 05/28/2023 at 11:25 Approved by: Rio Tamayo M.D. on 05/28/2023 at 11:41
== END ==
PROVIDERS: PCP Specialist; Referring Provider Specialist; Visit Provider Specialist
DX: Z34.82 Encounter for supervision of other normal pregnancy, second trimester (principal); Z3A.20 20 weeks gestation of pregnancy
CPT/HCPCS: 76811

== ENCOUNTER → 2023-08-07 08:33 | Outpatient (CLI) | payer OTHER, MEDICAID, SELFPAY ==
[2023-08-07 10:49] LABS: Hematocrit 34.2 % (36-46); Hemoglobin 11.8 g/dL (12.0-16.0)
[2023-08-07 11:08] LABS: GTT (PREG) 1 Hour PP 50gm Dose 91 mg/dL (76-139)
== END ==
PROVIDERS: PCP Specialist; Referring Provider Physician Assistant Medical; Visit Provider Physician Assistant Medical
DX: Z34.83 Encounter for supervision of other normal pregnancy, third trimester (principal); Z3A.29 29 weeks gestation of pregnancy
CPT/HCPCS: 36415; 82950; 85014; 85018

== ENCOUNTER → 2023-09-18 13:22 | Outpatient (CLI) | payer OTHER, MEDICAID, SELFPAY ==
[2023-09-19 15:05] LABS: Strep Grp B PCR NEG for Grp B Strep
== END ==
PROVIDERS: PCP Specialist; Visit Provider Student in an Organized Health Care Education/Training Program
DX: Z34.90 Encounter for supervision of normal pregnancy, unspecified, unspecified trimester (principal); Z3A.36 36 weeks gestation of pregnancy
CPT/HCPCS: 87653

== ENCOUNTER 2023-09-30 05:46 | Inpatient (IN) | payer OTHER, MEDICAID, SELFPAY ==
[2023-09-30] VITALS (7 sets, daily range): BP systolic 99–117; BP diastolic 65–74; PULSE 62–78; RESP 16–17; TEMP 36.2–36.8; O2SAT 98–100
[2023-09-30 07:05] LABS: Add Manual Diff / Slide Review NO; Basophils Absolute Auto 100 /uL (0-100); Basophils Percent Auto 0.5 % (0-2); Eosinophils Absolute Auto 200 /uL (0-450); Eosinophils Percent Auto 1.6 % (2-4); Hematocrit 34.9 % (36-46); Hemoglobin 11.7 g/dL (12.0-16.0); Lymphocytes Absolute Auto 2900 /uL (1100-4500); Lymphocytes Percent Auto 24.9 % (25-40); Mean Corpuscular HGB Conc 33.4 % (30-36); Mean Corpuscular Hemoglobin 27.9 PG (26-34); Mean Corpuscular Volume 83.5 fL (80-100); Monocytes Absolute Auto 500 /uL (0-900); Monocytes Percent Auto 4.2 % (3-14); Neutrophils Absolute Auto 8000 /uL (1500-7000); Neutrophils Percent Auto 68.8 % (50-75); Platelet Count 269 X10^3/uL (150-400); Red Blood Cell Count 4.18 X10^6/uL (4.0-5.2); Red Cell Distribution Width 13.6 % (11.6-14.8); White Blood Cell Count 11.6 X10^3/uL (4.5-11.0)
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
[2023-09-30] MEDS: LACTATED RINGERS 1,000 ML 999 ML IV ×2 (07:39→08:20)
[2023-09-30] MEDS: CITRIC ACID/SODIUM CITRATE 15 ML SOLUTION 30 ML PO (07:39)
[2023-09-30] MEDS: CEFAZOLIN 2 GM/100 ML PREMIX 100 ML IV (08:05)
--- NOTE | 2023-09-30 08:49 | SUR.OPER ---
CORD BLOOD AND PLACENTA TO L&D
--- NOTE | 2023-09-30 08:53 | SUR.OPER ---
Block start time [] . Monitoring initiated and maintained throughout procedure. Oxygen and medications given per anesthesiologist instructions. Patient remained stable throughout procedure, no adverse reactions noted. Block end time [].
--- NOTE | 2023-09-30 09:12 | PM.OBCS.1 ---
Operative Date/Time/Diagnoses Date of procedure: 09/30/23 Time of procedure: 08:00 Pre-op diagnosis: 1. Rosales intrauterine gestation at 39+1 weeks 2. History of prior low transverse section Post-op diagnosis: same Procedure & Clinicians Procedure: Repeat low transverse section Same procedure as scheduled: Yes Indications: 22yo at 39+1wks admitted for planned repeat . Her course was uncomplicated. Surgeon: Tressa Dietrich Click Yes if Unassisted: No Carpenter Assistant Installer: Bertha Lombardo Reason for Carpenter Assistant Installer: Carpenter Assistant Installer was necessary for timely, efficient, and safe completion of the procedure. Anesthesia Type: Spinal Operative Notes Findings: Normal-appearing uterus and bilateral fallopian tubes and ovaries. Clear fluid noted with delivery. Delivery productive of a viable male in cephalic presentation with APGARS 8/9 and weighing 3113g. Closure Type: primary Specimen(s): cord blood Intraoperative meds administered: Duramorph and Ketorolac Applied: Catheter Estimated Blood Loss (mL): 700 Blood products transfused: none Procedure in detail: The risks, benefits, indications and alternatives of the procedure were reviewed with the patient and informed consent was obtained. The patient was taken to the operating room where spinal anesthesia was obtained without difficulty and was found to be adequate. Sequential compression devices were placed bilaterally for VTE prophylaxis. She was then prepped and draped in the normal, sterile fashion in the dorsal supine position with a leftward tilt. She received 2g Ancef for surgical prophylaxis. A Pfannenstiel skin incision was then made with the scalpel and carried through to the underlying layer of fascia. The fascia was incised in the midline and the incision extended laterally with the Prater scissors. The superior aspect of the incision was grasped, tented up with Burton clamps and the rectus muscles were dissected off sharply. The rectus muscles were then at the midline. The peritoneum was identified, and entered sharply. The peritoneal incision was then extended horizontally, superiorly and inferiorly, with good visualization of the bladder. The bladder blade was then inserted. The lower uterine segment was incised in a transverse fashion with the scalpel. The uterine incision was then extended manually in a cephalad/caudad direction. The amniotic sac was artificially ruptured, productive of clear fluid. The bladder blade was then removed. The infant?s head delivered atraumatically through the hysterotomy without difficulty, followed by the body.? The cord was doubly clamped and cut after a 60sec delay with the handed off to the waiting pediatrics team. The placenta was then removed spontaneously with gentle traction on the umbilical cord. The uterus was then left in-situ and cleared of all clots and debris. The uterine incision was repaired with 0-vicryl in a running, locked fashion. A figure of eight suture was placed with 0-monocryl at the right edge of the hysterotomy, with excellent hemostasis achieved. The paracolic gutters were cleared of all clot and debris. The fascia was reapproximated with 0-vicryl in a running fashion. The subcutaneous layer was closed with 3-0 vicryl in simple, interrupted sutures. The skin was closed with 4-0 monocryl in a subcuticular fashion. The incision was then dressed with steri-strips and a pressure dressing was applied. At the completion of the case, a Crede maneuver was performed with good uterine tone and minimal vaginal bleeding noted.? The patient tolerated the procedure well. Sponge, lap and needle counts were correct x3. The patient was taken to the recovery room in stable condition. Complications: none Post-operative Condition: stable Disposition: PACU Aftercare: routine postop
[2023-09-30] MEDS: ACETAMINOPHEN 325 MG TABLET 650 MG PO ×2 (13:27→21:04)
[2023-09-30] MEDS: KETOROLAC 30 MG/ML VIAL IV ×2 (15:13→21:03)
[2023-10-01] MEDS: KETOROLAC 30 MG/ML VIAL IV (03:05)
[2023-10-01] MEDS: ACETAMINOPHEN 325 MG TABLET 650 MG PO ×2 (03:06→09:22)
[2023-10-01 05:49] LABS: Add Manual Diff / Slide Review NO; Basophils Absolute Auto 0 /uL (0-100); Basophils Percent Auto 0.3 % (0-2); Eosinophils Absolute Auto 300 /uL (0-450); Eosinophils Percent Auto 3.1 % (2-4); Hematocrit 30.8 % (36-46); Hemoglobin 10.4 g/dL (12.0-16.0); Lymphocytes Absolute Auto 2800 /uL (1100-4500); Lymphocytes Percent Auto 28.5 % (25-40); Mean Corpuscular HGB Conc 33.9 % (30-36); Mean Corpuscular Hemoglobin 28.5 PG (26-34); Monocytes Absolute Auto 500 /uL (0-900); Monocytes Percent Auto 5.2 % (3-14); Neutrophils Absolute Auto 6200 /uL (1500-7000); Neutrophils Percent Auto 62.9 % (50-75); Platelet Count 237 X10^3/uL (150-400); Red Blood Cell Count 3.67 X10^6/uL (4.0-5.2); Red Cell Distribution Width 14.2 % (11.6-14.8); White Blood Cell Count 9.9 X10^3/uL (4.5-11.0)
--- NOTE | 2023-10-01 09:02 | P.DS_ITS ---
Discharge Providers Provider Date of admission: 09/30/23 05:46 Discharge Date: 10/01/23 Primary care physician: Mona Sapp MD Consults: 09/30/23 09:54 Consult to Hog Killer Routine Comment: Discharge provider: Tressa Dietrich DO Summary Hospital Course Date Patient Seen: 10/01/23 Time Patient Seen: 09:02 Diagnoses: 1. Term gestation at 39+1wks 2. History of prior 3. Varicella nonimmune Hospital Course: 22yo [id number] admitted at 39+1wks for planned repeat . Her delivery was uncomplicated, and productive of a viable male . Her course was unremarkable. On post-op day #1, she was ambulating, tolerating regular diet, voiding spontaneously with minimal lochia. Her pain was well controlled with oral medications, thus she was discharged to home on post-op day #1. Peripartum Data Delivery Method: Section Procedures: External monitoring Surgical antibiotic prophylaxis Repeat low transverse section Spinal anesthesia complications: none Discharge Diagnosis (1) delivery delivered: Status: Acute (2) Susceptible to varicella (non-immune), currently : Status: Acute Status at Discharge Cognitive/behavioral status at discharge: oriented Functional status at discharge: independent ambulation Overall status at discharge: patient is progressing back to baseline Time Spent with Patient Time attestation: Total time spent providing and/or coordinating discharge services: Time spent: Less than 30 minutes Objective Labs 10/01/23 05:35 Labs: Laboratory Results - last 24 hr 10/01/23 05:35 WBC 9.9 RBC 3.67 L Hgb 10.4 L Hct 30.8 L MCV 84.0 MCH 28.5 MCHC 33.9 RDW 14.2 Plt Count 237 Neut % (Auto) 62.9 Lymph % (Auto) 28.5 [place] % (Auto) 5.2 Eos % (Auto) 3.1 Baso % (Auto) 0.3 Neut # (Auto) 6200 Lymph # (Auto) 2800 [place] # (Auto) 500 Eos # (Auto) 300 Baso # (Auto) 0 Exam Vital Signs (past 8 hours): Oxygen Delivery Method Room Air Const General: cooperative, healthy appearing, comfortable and No acute distress Resp Effort & Inspection: normal respiratory effort GI Inspection: normal to inspection Other: fundus firm and nontender at U-2 Skin General: no rashes or lesions noted Other: Pfannenstiel skin incision clean/dry/intact with Steri-Strips in place Neuro General: patient alert and patient awake Extrem General: normal to inspection, no pedal edema and no calf tenderness Psych Mood: congruent mood Affect: normal affect Discharge Plan Discharge Plan Patient Disposition: Home Provider Discharge Comment: Take ibuprofen 600 mg every 6 hours and acetaminophen 650 mg every 6 hours as needed for pain. Use oxycodone as needed for severe pain. Avoid lifting over 20 lb for 6 weeks. Nothing in the vagina for 6 weeks. Discharge orders & Medications Prescriptions: New oxycodone 5 mg Tablet 5 mg PO Q4H PRN (Reason: Pain, Moderate (4-6)) Qty: 10 0RF Continued Vitamin Plus Low Iron 27 mg iron- 1 mg tablet 1 tab PO DAILY Discontinued prenat.vits,lynsey,[id number] Tablet 1 tab PO DAILY Follow up/Referrals: Mona Sapp MD [Primary Care Provider] - Diet/Activity/Treatments Diet: Diet as Tolerated Activity: As tolerated Skin/Wound/Dressing Care Skin care: You may shower normally. Report to your healthcare provider any signs of infection, such as:: chills, fever, increased pain, unusual drainage and unusual redness Visit Report/Discharge Packet Instructions: DI for Stand Alone Forms: Patient Portal/API, Stroke Signs & Symptoms Discharge Data Primary Care Provider: Mona Sapp
[2023-10-01] MEDS: DOCUSATE 100 MG CAPSULE PO (09:21)
[2023-10-01] MEDS: IBUPROFEN 600 MG TABLET PO (09:22)
[2023-10-01] MEDS: PRENATAL VIT,CALC/IRON/FOLIC 1 TABLET 1 TAB PO (09:23)
== END 2023-10-01 14:12 | disposition home or self-care (01) | DRG 540 ==
PROVIDERS: Admitting Provider Student in an Organized Health Care Education/Training Program; PCP Specialist; Referring Provider Student in an Organized Health Care Education/Training Program; Visit Provider Student in an Organized Health Care Education/Training Program
PROC: 10D00Z1 Extraction of Products of Conception, Low, Open Approach (ICD-10-PCS; CPT 59514; principal; 2023-09-30 07:45)
DX: O34.211 Maternal care for low transverse scar from previous cesarean delivery (principal); Z3A.39 39 weeks gestation of pregnancy; Z37.0 Single live birth
CPT/HCPCS: 36415; 59050; 59514; 85025; 86850; 86900; 86901; J0690; J1885; J2274; J2405